=== PATIENT | female | born 2000 | race Caucasian/White ===

== ENCOUNTER 2020-05-21 23:53 | Emergency (ER) | payer OTHER, SELFPAY ==
[2020-05-22 00:18] VITALS: BP 140/83; PULSE 108; RESP 16; TEMP 37.2; O2SAT 99; BMI 47.2
--- NOTE | 2020-05-22 00:35 | ED_ITS ---
HPI - URI/Sore Throat General Chief Complaint: Dyspnea Stated Complaint: SOB/VOMITING Time Seen by Provider: 05/22/20 00:25 Source: patient Mode of arrival: ambulatory History of Present Illness HPI Narrative: This is a 20-year-old female with no significant past medical history who presents with runny nose, headache, cough, nausea but denies any body aches. In addition she denies any recent travel or COVID-19 exposure. Otherwise, she denies shortness of breath/chest pain/palpitations. And did not receive her flu vaccine this year. Related Data Previous Rx's Medication Instructions Recorded ondansetron HCl [Zofran] 4 mg PO Q8H PRN #5 tab 05/22/20 Allergies Allergy/AdvReac Type Severity Reaction Status Date / Time No Known Allergies Allergy Unverified 02/07/20 17:15 Review of Systems Review of Systems: Pertinent positives and negatives as stated in the HPI and 10 point review of systems otherwise negative. PMFSH Past Medical History Source: nursing notes reviewed Medical History No known health problems Surgical History No history of previous surgery Social History Social History Smoking Status: Never smoker Use of substances other than those prescribed or required for medical reasons: Yes Substance Use Type: Marijuana Substance Use Frequency: Daily Advance Directives: No Physical Exam Vital Signs: Vital Signs: Last Vital Signs Temp 98.9 F 05/22/20 00:18 Pulse 108 H 05/22/20 00:18 Resp 16 05/22/20 00:18 BP 140/83 H 05/22/20 00:18 Pulse Ox 99 05/22/20 00:18 Body Mass Index 47.2 VITAL SIGNS: Reviewed. GENERAL: Well developed, well nourished, in no acute distress. HEAD: Normocephalic/atraumatic, EYES: PERRLA, EOMI intact without pain, no nystagmus/pallor/icterus noted EARS: Ext canals without abnormality, TMs non-bulging and non-erythematous NOSE: Nares patent bilateral OROPHARYNX: no oral lesions noted, posterior pharynx clear and non-erythematous without noted tonsillar enlargement/erythema/exudates NECK: Supple, no adenopathy LUNGS: Normal breath sounds. No adventitious sounds or accessory muscle use. SpO2<99> CARDIOVASCULAR: Regular rate and rhythm without noted murmurs, no JVD or lower extremity edema. ABDOMEN: Soft, non-tender, non-distended with bowel sounds. No rigidity. No guarding. No palpable masses or hernias noted NEUROLOGIC: Alert and oriented x 4. Strength and sensation to light touch were grossly intact x 4. Course Course Course Narrative: This is a 20-year-old female with history and clinical presentation consistent with viral URI and doubt any pneumonia. She was COVID- 19 swabbed which is negative and will be discharged with instructions on supportive treatment. MDM - URI/Sore Throat Lab Data Labs: Lab Results 05/22/20 05/22/20 Range/Units 00:49 00:49 Urine Color YELLOW Urine Appearance CLEAR Urine pH 7.0 (5.0-8.0) Ur Specific [place] 1.020 (1.005-1.025) Urine Protein NEG (NEG-TRACE) MG/DL Urine Glucose (UA) NEG (NEG) MG/DL Urine Ketones NEG (NEG) MG/DL Urine Blood NEG (NEG) Urine Nitrite NEG (NEG) Ur Leukocyte Esterase NEG (NEG) Urine Test NEGATIVE (NEGATIVE) COVID-19 ([facility]) Negative (Negative) COVID-19 Clin Com See Note Discharge Plan Discharge Clinical Impression: Viral syndrome, Encounter for laboratory testing for COVID-19 virus, Lab test negative for COVID-19 virus Patient Disposition: Home, Self-Care Instructions: Viral Syndrome (ED) Additional Instructions: 1. Tylenol 1000 mg, orally, every 6 hours as needed for temperatures greater than 100.4 or body aches to include headache. Do not exceed 4000 mg within 24 hours. 2. Ibuprofen 400 mg, orally with milk or food, every 6 hours as needed for temperatures greater than 100.4, body aches, headache. 3. Increase fluid hydration especially with water. 4. Return to this emergency department should you develop any acute worsening of her symptoms to include shortness of breath, fevers/chills that are not responding to Tylenol or ibuprofen. Prescriptions: New ondansetron HCl [Zofran] 4 mg tablet 4 mg PO Q8H PRN (Reason: nausea and vomiting) Qty: 5 RF: 0 Interventions: ED Discharge Assessment Last Done: 05/22/20 01:49 Discharge Date/Time: 05/22/20 01:52
[2020-05-22] MEDS: Ketorolac Tromethamine 15 MG/ML VIAL IM (00:51)
[2020-05-22] MEDS: Acetaminophen 325 MG TABLET 975 MG PO (00:51)
[2020-05-22 00:58] LABS: Glucose Urine UA NEG (NEG); Leukocyte Esterase Urine NEG (NEG); Nitrite Urine NEG (NEG); Urine Blood NEG (NEG); Urine Ketones NEG (NEG); Urine Protein NEG (NEG-TRACE)
--- NOTE | 2020-05-22 00:58 | PC.NURSE ---
Patient swabbed for Covid and Urinalysis sent. Patient medicated per emar as noted
[2020-05-22 01:00] LABS: Appearance Urine CLEAR; Color Urine YELLOW
[2020-05-22 01:06] LABS: UPreg QC Valid YES; Urine Pregnancy NEGATIVE (NEGATIVE)
[2020-05-22 01:11] LABS: COVID-19 Test Negative (Negative); IDNOW Serial# 9DD0AD1C
== END 2020-05-22 01:52 | disposition home or self-care (01) ==
PROVIDERS: Emergency Provider Student in an Organized Health Care Education/Training Program; PCP Internal Medicine
DX: B34.9 Viral infection, unspecified (principal); R06.00 Dyspnea, unspecified; F12.90 Cannabis use, unspecified, uncomplicated; Z20.828 Contact with and (suspected) exposure to other viral communicable diseases; Z79.899 Other long term (current) drug therapy
CPT/HCPCS: 81003; 81025; 87635; 96372; 99284; J1885